=== PATIENT | female | born 1965 | race Caucasian/White ===

== ENCOUNTER 2019-09-19 00:58 | Outpatient (CLI) | payer OTHER, SELFPAY ==
--- NOTE | 2019-09-19 | DI.MRI_ITS ---
EXAM: MR BRAIN WO CLINICAL HISTORY: MULTIPLE SCLEROSIS TECHNIQUE: Multiplanar multisequence MRI of the brain was performed. COMPARISON: No exams were available for comparison FINDINGS: VENTRICLES AND EXTRA AXIAL SPACES: Normal in size and morphology for the patient's age. MIDLINE SHIFT: None. CEREBRAL PARENCHYMA: No focus of restricted diffusion to suggest acute infarct. No space-occupying le diane identified. There are several foci of hyperintense signal seen in the white matter on the T2 and FLAIR images in the right cerebellum and in the periventricular region. HEMORRHAGE: None. BRAINSTEM/CEREBELLUM: Normal. CALVARIUM: Normal. VISUALIZED PARANASAL SINUSES/MASTOIDS:Clear. [place]: Normal flow void. PITUITARY GLAND: Unremarkable. OTHER FINDINGS: None. IMPRESSION: Several foci of hyperintense signal in the white matter. This can be seen with demyelinating process es including MS or early small vessel ischemic disease. If there are priors for comparison the august b e submitted and an addendum will be issued. DATA REPOSITORY:
== END 2019-09-19 01:18 ==
PROVIDERS: PCP Legal Medicine; Visit Provider Psychiatry & Neurology Neurology
DX: G35 Multiple sclerosis (principal); R90.82 White matter disease, unspecified
CPT/HCPCS: 70551

== ENCOUNTER 2022-05-05 01:12 | Outpatient (CLI) | payer MEDICARE, OTHER, SELFPAY ==
--- NOTE | 2022-05-05 | DI.MRI_ITS ---
Exam(s) MR BRAIN WO EXAM: MR BRAIN WO CLINICAL HISTORY: MULTIPLE SCLEROSIS TECHNIQUE: Multiplanar multisequence MRI of the brain was performed. COMPARISON: MR MR BRAIN WO from 09/19/2019 MR MRI BRAIN WO CONTRST from 10/16/2020 FINDINGS: VENTRICLES AND EXTRA AXIAL SPACES: Normal in size and morphology for the patient's age. MIDLINE SHIFT: None. CEREBRAL PARENCHYMA: There is a small focus of high signal in the left frontal white matter adjacent to the left of at lateral ventricle. There are tiny foci focus of high signal is seen adjacent to th e right lateral ventricle in the right parietal white matter. The findings appear grossly stable fro m the prior exam given differences in technique. No focus of restricted diffusion to suggest acute i nfarct. No space-occupying lesion identified. HEMORRHAGE: None. BRAINSTEM/CEREBELLUM: Several small foci of high signal are again noted in the right cerebellar hemis phere. Foci of high signal are again noted in the VISUALIZED PARANASAL SINUSES/MASTOIDS:Clear. [place]: Normal flow void. PITUITARY GLAND: Unremarkable. ORBITS: Unremarkable. IMPRESSION: Stable high signal foci adjacent to the lateral ventricles as well as in the right cerebellum. No ne w findings. DATA REPOSITORY:
== END 2022-05-05 01:32 ==
PROVIDERS: PCP Family Medicine; Visit Provider Psychiatry & Neurology Neurology
DX: G35 Multiple sclerosis (principal)
CPT/HCPCS: 70551